=== PATIENT | female | born 1995 | race Caucasian/White ===

== ENCOUNTER 2018-04-05 11:16 | Emergency (ER) | payer OTHER ==
[2018-04-05 11:27] VITALS: BMI 29.2
[2018-04-05] MEDS ORDERED: SODIUM CHLORIDE 1,000 ML IV STA (13:19)
[2018-04-05] MEDS ORDERED: ACETAMINOPHEN 1000 MG/100 ML VIAL (NON FORMULARY) IVPB ONE (13:20)
--- NOTE | 2018-04-05 13:40 | PDOC ---
History of Present Illness - General Chief Complaint: Pain Stated Complaint: FLANK PAIN Time Seen by Provider: 04/05/18 13:04 History Source: Patient Exam Limitations: Language Barrier - History of Present Illness Initial Comments: 04/05/18 13:36 Patient is a 23F with no significant medical history here today complaining of back pain and neck pain for the past 4 days. She states that the pain radiates to her flank and abdomen. Endorses associated pain with urination. LMP on 03/25. Denies vaginal pain and discharge. Denies urinary incontinence and retention. Endorses constipation. Denies IVDU, fever, nausea, and vomiting. Patient's neck and back pain are located laterally. Denies trauma and inciting events. Past History - Past Medical History Allergies/Adverse Reactions: Allergies Allergy/AdvReac Type Severity Reaction Status Date / Time No Known Allergies Allergy Verified 04/05/18 11:24 COPD: No - Suicide/Smoking/Psychosocial Hx Smoking History: Never smoked Have you smoked in the past 12 months: No Information on smoking cessation initiated: No Hx Alcohol Use: No Drug/Substance Use Hx: No Substance Use Type: None Review of Systems - Review of Systems Comments:: 04/05/18 13:47 GENERAL/CONSTITUTIONAL: No fever or chills. No weakness. HEAD, EYES, EARS, NOSE AND THROAT: No change in vision. No sore throat. CARDIOVASCULAR: No chest pain or shortness of breath RESPIRATORY: No cough, wheezing, or hemoptysis. GASTROINTESTINAL: No nausea, vomiting, diarrhea or constipation. GENITOURINARY: Positive for dysuria and frequency. MUSCULOSKELETAL: No joint or muscle swelling or pain. Positive for neck and back pain. SKIN: No rash NEUROLOGIC: No headache, vertigo, loss of consciousness, or change in strength/ sensation. ENDOCRINE: No increased thirst. No abnormal weight change HEMATOLOGIC/LYMPHATIC: No anemia, easy bleeding, or history of blood clots. ALLERGIC/IMMUNOLOGIC: No hives or skin allergy. *Physical Exam - Vital Signs Last Vital Signs Temp Pulse Resp BP Pulse Ox 98.7 F 65 18 125/72 100 04/05/18 11:24 04/05/18 11:24 04/05/18 11:24 04/05/18 11:24 04/05/18 11:24 - Physical Exam Comments: 04/05/18 13:48 GENERAL: Awake, alert, and fully oriented, in no acute distress HEAD: No signs of trauma, normocephalic, atraumatic EYES: PERRLA, EOMI, sclera anicteric, conjunctiva clear ENT: Auricles normal inspection, hearing grossly normal, nares patent, oropharynx clear without exudates. Moist mucosa NECK: Normal ROM, supple, no lymphadenopathy, JVD, or masses LUNGS: No distress, speaks full sentences, clear to auscultation bilaterally HEART: Regular rate and rhythm, normal S1 and S2, no murmurs, rubs or gallops, peripheral pulses normal and equal bilaterally. ABDOMEN: Positive for suprapubic tenderness, extreme lower left and right quadrant tenderness PELVIC: Normal external genitalia, no CMT, no adnexal masses or tenderness. EXTREMITIES: Normal inspection, Normal range of motion, no edema. No clubbing or cyanosis. NEUROLOGICAL: Cranial nerves II through XII grossly intact. Normal speech, normal gait, no focal sensorimotor deficits SKIN: Warm, Dry, normal turgor, no rashes or lesions noted. ED Treatment Course - LABORATORY CBC & Chemistry Diagram: 04/05/18 14:27 04/05/18 14:27 - RADIOLOGY Radiology Studies Ordered: Category Date Time Status TRANSVAGINAL ULTRASOUND US [US] Stat Ultrasound 04/05/18 13:24 Ordered Medical Decision Making - Medical Decision Making 04/05/18 13:49 Patient is 23F here today with back, neck, and lower abdominal pain. Vital signs stable and normal. Exam shows tenderness, but pain is distractable and patient is ambulating without pain. No red flags for back or neck pain, exam very consistent with musculoskeletal pain. Lower abdominal pain concerning for UTI, torsion, fibroids. Will evaluate further with cbc, cmp, lipase, ua, upreg, tvus. Will treat with fluids and tylenol. 04/05/18 15:26 Laboratory Tests 04/05/18 04/05/18 04/05/18 14:27 14:27 14:27 WBC 9.0 Hgb 12.2 BUN 12 Creatinine 0.8 Urine Nitrite Negative Ur Leukocyte Esterase Negative Urine HCG, Qual 04/05/18 14:27 WBC Hgb BUN Creatinine Urine Nitrite Ur Leukocyte Esterase Urine HCG, Qual Negative CBC normal, cmp reassuring. UA negative. Pending TVUS. 04/05/18 16:16 TVUS negative. Will discharge with return precautions. *DC/Admit/Observation/Transfer Diagnosis at time of Disposition: Back pain - Discharge Dispostion Disposition: HOME Condition at time of disposition: Good Decision to Admit order: No - Referrals - Patient Instructions Printed Discharge Instructions: DI for Low Back Pain Additional Instructions: Please return if you have any new, worsening or concerning symptoms. Please follow up with your primary care physician in the next week. Please take tylenol 650mg up to 4 times per day and take ibuprofen 400mg up to 3 times to day as needed for pain. - Post Discharge Activity
[2018-04-05] MEDS ORDERED: ACETAMINOPHEN INJECTION 100 ML IVPB ONE (14:24)
[2018-04-05 14:47] LABS: URINE APPEARANCE CLEAR; URINE BILIRUBIN NEGATIVE (<2.0 mg/dL); URINE COLOR LTYELLOW; URINE GLUCOSE (UA) NEGATIVE (NEGATIVE); URINE KETONE NEGATIVE (NEGATIVE); URINE LEUK ESTERASE NEGATIVE (NEGATIVE); URINE NITRITE NEGATIVE (NEGATIVE); URINE PROTEIN NEGATIVE (NEGATIVE); URINE UROBILINOGEN NEGATIVE mg/dL (0.2-1.0)
[2018-04-05 15:09] LABS: ALBUMIN 4.1 g/dl (3.4-5.0); ANION GAP 5 (8-16); BILIRUBIN,TOTAL 0.3 mg/dL (0.2-1.0); BLOOD UREA NITROGEN 12 mg/dL (7-18); CALCIUM 9.3 mg/dL (8.5-10.1); CHLORIDE 103 mmol/L (98-107); CO2 29 mmol/L (21-32); CREATININE 0.8 mg/dL (0.55-1.02); GLUCOSE,RANDOM 76 mg/dL (74-106); LIPASE 105 U/L (73-393); SGPT/ALT 38 U/L (12-78); SODIUM 137 mmol/L (136-145)
[2018-04-05 15:10] LABS: ALK PHOS 85 U/L (45-117); POTASSIUM 4.7 mmol/L (3.5-5.1); SGOT/AST 42 U/L (15-37)
--- NOTE | 2018-04-05 15:27 | PDOC ---
Attending Attestation - Resident Resident Name: AubreyBrooks pleitez - ED Attending Attestation I have performed the following: I have examined & evaluated the patient, The case was reviewed & discussed with the resident, I agree w/resident's findings & plan, Exceptions are as noted - HPI HPI: 04/05/18 15:27 Agree with Residents note - Physicial Exam PE: 04/05/18 15:27 Agree with residents note - Medical Decision Making 04/05/18 16:58 Abdominal pain on examination. Vital signs stable. Laboratory analysis unremarkable Patient with mild low back discomfort. Normal pelvic exam. Normal transvaginal ultrasound. Most likely muscular skeletal low back discomfort. No lower abdominal tenderness palpation on examination low suspicion for appendicitis. Patient instructed to return to ED for any fever vomiting severe low abdominal pain or for any concerns. Findings, need for follow-up and strict return instructions discussed with patient.
[2018-04-05 17:06] VITALS: BP 125/70; PULSE 70; TEMP 97.8
== END 2018-04-05 16:41 | disposition home or self-care (01) ==
LOC: JER 11:16
PROC: 3E0337Z Introduction of Electrolytic and Water Balance Substance into Peripheral Vein, Percutaneous Approach (ICD-10-PCS; principal; 2018-04-05)
PROC: 3E033NZ Introduction of Analgesics, Hypnotics, Sedatives into Peripheral Vein, Percutaneous Approach (ICD-10-PCS; 2018-04-05)
DX: M54.5 Low back pain (principal)
CPT/HCPCS: 36415; 76830-TC; 80053; 81003; 83690; 84703; 85025; 96361; 96374; 99282-25; J0131; J7030

== ENCOUNTER 2018-08-19 16:25 | Emergency (ER) | payer OTHER ==
[2018-08-19 16:30] VITALS: TEMP 98; BMI 29.2
--- NOTE | 2018-08-19 16:30 | PDOC ---
Rapid Medical Evaluation Time Seen by Provider: 08/19/18 16:26 Medical Evaluation: Allergies Allergy/AdvReac Type Severity Reaction Status Date / Time No Known Allergies Allergy Verified 04/05/18 11:24 I have performed a brief in-person evaluation of this patient. The patient presents with a chief complaint of: right sided back pain radiating around to right pelvic region x 2 days. kidney stones in the past Pertinent physical exam findings: TTP of right pelvis. I have ordered the following: hcg, UA/culture, labs The patient will proceed to the ED for further evaluation. Discharge Disposition - Diagnosis Back pain - Referrals - Patient Instructions - Post Discharge Activity
[2018-08-19 17:03] LABS: BASO % 0.4 % (0-2.0); EOS % 2.4 % (0-4.5); HEMATOCRIT 38.7 % (32.4-45.2); HEMOGLOBIN 12.5 GM/dL (10.7-15.3); LYMPH % 33.2 % (8-40); MCH 25.2 pg (25.7-33.7); MCHC 32.2 g/dl (32.0-36.0); MEAN CELL VOLUME 78.4 fl (80-96); MEAN PLT VOLUME 8.5 fl (7.5-11.1); MONO % 5.8 % (3.8-10.2); NEUT % 58.2 % (42.8-82.8); PLATELET COUNT 264 K/MM3 (134-434); RBC 4.94 M/mm3 (3.60-5.2); RDW 17.4 % (11.6-15.6); WHITE BLOOD COUNT 9.1 K/mm3 (4.0-10.0)
[2018-08-19 17:28] LABS: ALBUMIN 3.8 g/dl (3.4-5.0); ALK PHOS 73 U/L (45-117); ANION GAP 10 MMOL/L (8-16); BILIRUBIN,TOTAL 0.2 mg/dL (0.2-1); BLOOD UREA NITROGEN 13 mg/dL (7-18); CALCIUM 9.7 mg/dL (8.5-10.1); CHLORIDE 103 mmol/L (98-107); CO2 26 mmol/L (21-32); CREATININE 0.7 mg/dL (0.55-1.3); GLUCOSE,RANDOM 82 mg/dL (74-106); POTASSIUM 4.3 mmol/L (3.5-5.1); SGOT/AST 18 U/L (15-37); SGPT/ALT 31 U/L (13-61); SODIUM 140 mmol/L (136-145); TOT PROT 7.9 g/dl (6.4-8.2)
--- NOTE | 2018-08-19 17:46 | PDOC ---
History of Present Illness - General Chief Complaint: Pain Stated Complaint: BACK PAIN Time Seen by Provider: 08/19/18 16:26 History Source: Patient Exam Limitations: No Limitations - History of Present Illness Travel History: No Initial Comments: 08/19/18 18:34 The patient is a 23 year old female with no significant past medical history who presents to the ER with back pain and epigastric pain since yesterday morning. Patient describes the back pain as constant, localized on the right flank waith radiation to the right groin, now 8/10 in severity that is exacerbated with movement, has been going on for approx 1 week since doing heavy lifting at work. Patient is also complaining of associated dysuria but states he has had this for the past year and has followed up with her PCP who told her she had no infection. Patient reports taking Aleve at 12PM today with no relief of her symptoms. Patient denies any history of kidney stones. Patient is also complaining of diffuse abdominal pain, worse in the epigastrium region, 7/10 in severity, constant, worsened with food intake, and feels like a bloating sensation. The patient denies chest pain, headache, and dizziness. Patient admits to constipation but states this is normal for her. Denies fever, chills, vomit, diarrhea. Denies frequency, urgency, and hematuria. Allergies: NKA Past surgical history: None reported. Social history: No reported alcohol, drug or cigarette use. PCP: [facility] at [facility] Past History - Past Medical History Allergies/Adverse Reactions: Allergies Allergy/AdvReac Type Severity Reaction Status Date / Time No Known Allergies Allergy Verified 08/19/18 16:26 Home Medications: Ambulatory Orders Mag Hydrox/Al Hydrox/Simeth [MAALOX *SUSPENSION* -] 30 ml PO Q6H PRN #1 bottle 08/19/18 Ranitidine HCl [Zantac 75] 75 mg PO DAILY #14 tablet 08/19/18 COPD: No DVT: No - Suicide/Smoking/Psychosocial Hx Smoking History: Never smoked Have you smoked in the past 12 months: No Information on smoking cessation initiated: No Hx Alcohol Use: No Drug/Substance Use Hx: No Substance Use Type: None Review of Systems - Review of Systems Able to Perform ROS?: Yes Comments:: 08/19/18 18:34 Constitutional - no reported Fever, Chills, HEENT: no reported vision changes, sore throat Respiratory: no reported cough, sob, hemoptysis Cardiac: no reported chest pain, palpitations, light headedness, leg swelling Abd/GI: +abd pain, flank pain no reported , nausea, vomiting, blood per rectum, melena, diarrhea : + dysuria x 1 year no reported frequency, discharge Musculskelatal - +r flank pain no reported back pain, joint swelling skin - no reported bruising, erythema, rash neurological: no reported headache, numbness, focal weakness, tingling, ataxia, hematologic: no reported easy bruising, easy bleeding *Physical Exam - Vital Signs Last Vital Signs Temp Pulse Resp BP Pulse Ox 98.0 F 85 18 113/81 100 08/19/18 16:28 08/19/18 16:28 08/19/18 16:28 08/19/18 16:28 08/19/18 16:28 - Physical Exam Comments: 08/19/18 18:34 GENERAL: The patient is awake, alert, and fully oriented, Nontoxic - in no acute distress. HEAD: Normocephalic, atraumatic. EYES: extraocular movements intact, sclera anicteric, conjunctiva clear. ENT: Normal voice, Moist mucous membranes. NECK: Normal range of motion, supple LUNGS: Breath sounds equal, clear to auscultation bilaterally. No wheezes, no rhonchi, no rales. HEART: Regular rate and rhythm, normal S1 and S2 without murmur, rub or gallop. ABDOMEN: Soft, nontender, No guarding, no rebound. . No CVA tenderness BACK: No mikdlnie tenderness, mild parasplinal tenderness in the R lumbar region EXTREMITIES: Normal range of motion, no edema. NEUROLOGICAL: No facial assymetry, Normal speech, PSYCH: Normal mood, normal affect. SKIN: Warm, Dry, normal turgor, ED Treatment Course - LABORATORY CBC & Chemistry Diagram: 08/19/18 16:37 08/19/18 16:37 - ADDITIONAL ORDERS Additional order review: Laboratory Results 08/19/18 16:37 Sodium 140 Potassium 4.3 Chloride 103 Carbon Dioxide 26 Anion Gap 10 BUN 13 Creatinine 0.7 Creat Clearance w eGFR > 60 Random Glucose 82 Calcium 9.7 Total Bilirubin 0.2 AST 18 ALT 31 Alkaline Phosphatase 73 Total Protein 7.9 Albumin 3.8 08/19/18 16:37 RBC 4.94 MCV 78.4 L MCHC 32.2 RDW 17.4 H MPV 8.5 Neutrophils % 58.2 Lymphocytes % 33.2 Monocytes % 5.8 Eosinophils % 2.4 Basophils % 0.4 Medical Decision Making - Medical Decision Making 08/19/18 18:28 23y F presents with a complaint of 1 week of R lower back pain s/p lifting injury from her work, taking alleve without significan timprvoement. pt also endorses dysuria x 1 year and epigastric pain and fullness when she eats for 2 days. suspect her back is musk in nature, possible kidney stone - will ck UA for hematuria med tgive tylenol epigastric pain - ?gastritis will give pepcid/maalox 08/19/18 19:59 pts labs rviewed pt feeling significantly improved abd pain resolved lower back pain also sinificnalty improved will give pt pepcid/maalox at home for gastritis tylenol as neede for her back strain I discussed the physical exam findings, ancillary test results and final diagnoses with the patient. I answered all of the patient's questions. The patient was satisfied with the care received and felt comfortable with the discharge plan and treatment plan. The patient will call their primary care physician within 24 hours to arrange follow-up and will return to the Emergency Department with any new, persistent or worsening symptoms. *DC/Admit/Observation/Transfer Diagnosis at time of Disposition: Back pain Qualifiers: Back pain location: low back pain Chronicity: acute Back pain laterality: right Sciatica presence: without sciatica Qualified Code(s): M54.5 - Low back pain GERD (gastroesophageal reflux disease) Qualifiers: Esophagitis presence: esophagitis presence not specified Qualified Code(s): K21.9 - Gastro-esophageal reflux disease without esophagitis - Discharge Dispostion Disposition: HOME Condition at time of disposition: Improved Decision to Admit order: No - Prescriptions Prescriptions: Mag Hydrox/Al Hydrox/Simeth [MAALOX *SUSPENSION* -] 30 ml PO Q6H PRN #1 bottle PRN Reason: Pain Ranitidine HCl [Zantac 75] 75 mg PO DAILY #14 tablet - Referrals Referrals: [facility] [place] [Provider Group] - Patient Instructions Printed Discharge Instructions: DI for Gastritis, DI for Back Strain or Sprain Additional Instructions: [place] tylenol para wong dolor de espalda. Use donal almohadilla trmica para mayor comodidad. Evite levantar cosas pesadas hasta que sea mucho mejor. Evite las comidas picantes, las comidas agrias, la cafena. [place] pepcid segn las indicaciones para wong gastritis. Take tylenol for your back pain. Use a heating pad for comfort. Avoid heavy lifting until it is much better. Avoid spicy foods, sour foods, caffeine. Take pepcid as directed for your gastritis. Print Language: KITTITIAN - Post Discharge Activity
[2018-08-19] MEDS ORDERED: MAG HYDROX/AL HYDROX/SIMETH -MYLANTA- ORAL SUSPENSION PO ONE (18:24)
[2018-08-19] MEDS ORDERED: FAMOTIDINE 20 MG/50 ML IVPB 20 MG in PREMIX 50 IVPB ONE (18:24)
[2018-08-19] MEDS ORDERED: ACETAMINOPHEN 325 MG TABLET (FP) PO ONE (18:24)
[2018-08-19] MEDS ORDERED: ACETAMINOPHEN 325 MG TABLET (FP) ONE (18:27)
[2018-08-19] MEDS ORDERED: FAMOTIDINE 20 MG/50 ML IVPB 20 MG/50 ML MG IVPB ONE (18:28)
[2018-08-19] MEDS ORDERED: MAG HYDROX/AL HYDROX/SIMETH 30 ML UNIT-DOSE CUP ONE (18:28)
[2018-08-19 18:37] LABS: URINE APPEARANCE CLEAR; URINE BILIRUBIN NEGATIVE (<2.0 mg/dL); URINE COLOR LTYELLOW; URINE GLUCOSE (UA) NEGATIVE (NEGATIVE); URINE KETONE NEGATIVE (NEGATIVE); URINE LEUK ESTERASE NEGATIVE (NEGATIVE); URINE NITRITE NEGATIVE (NEGATIVE); URINE PROTEIN NEGATIVE (NEGATIVE); URINE UROBILINOGEN NEGATIVE mg/dL (0.2-1.0)
[2018-08-19 18:39] LABS: HCG,QUALITATIVE URINE Negative
[2018-08-19 19:07] LABS: LIPASE 125 U/L (73-393)
[2018-08-19 20:15] VITALS: BP 120/82; PULSE 80
== END 2018-08-19 20:20 | disposition home or self-care (01) ==
LOC: JER 16:25
PROC: 3E033GC Introduction of Other Therapeutic Substance into Peripheral Vein, Percutaneous Approach (ICD-10-PCS; principal; 2018-08-19)
DX: K21.9 Gastro-esophageal reflux disease without esophagitis (principal); M54.5 Low back pain
CPT/HCPCS: 36415; 80053; 81003; 83690; 84703; 85025; 87086; 99281-25

== ENCOUNTER 2018-09-09 09:24 | Emergency (ER) | payer OTHER ==
[2018-09-09 09:47] VITALS: BP 121/78; PULSE 73; TEMP 98.9; BMI 29.2
--- NOTE | 2018-09-09 11:02 | PDOC ---
Attending Attestation - Resident Resident Name: Esme Herman - ED Attending Attestation I have performed the following: I have examined & evaluated the patient, The case was reviewed & discussed with the resident, I agree w/resident's findings & plan, Exceptions are as noted
[2018-09-09] MEDS ORDERED: METOCLOPRAMIDE HCL INJECTION 10 MG/2 ML VIAL IVPUSH ONE (11:09)
--- NOTE | 2018-09-09 11:09 | PDOC ---
History of Present Illness - General Chief Complaint: Headache Stated Complaint: HEADACHE, CHEST PAIN Time Seen by Provider: 09/09/18 09:54 - History of Present Illness Initial Comments: 09/09/18 12:25 The patient is a 23-year-old female, with no significant past medical history, who presents to the ED with chest pain, neck pain, and left-sided frontal headache, b/l arm pain that have been ongoing for a few years (she is unsure how many), but symptoms progressively worsened 4 days ago. The patient describes the chest pain as constant discomfort with radiation across her chest , with associated bilateral arm pain. Patient states that she has not been able to lift up her arms fully due to the pain getting worse when she does. The headache has been constant, gradual onset, not better or worse with anything. She states all the symptoms occurred at the same time, and got worse at the same time 4 days ago. Patient reports that she followed up with her PCP regarding these symptoms and was given a referral to see a Neurologist. The patient has a appointment with the Neurologist tomorrow. She denies taking medications at home for the pain. Denies trauma. Feels safe at home. The patient denies fevers, chills, nausea, vomiting, diarrhea, or abdominal pain. Denies any shortness of breath or palpitations. Denies any urinary symptoms. Allergies: NKA Past surgical history: None reported. Social history: No reported tobacco, alcohol, or drug use. PCP: Care at [facility] Past History - Past Medical History Allergies/Adverse Reactions: Allergies Allergy/AdvReac Type Severity Reaction Status Date / Time No Known Allergies Allergy Verified 09/09/18 09:40 Home Medications: Ambulatory Orders Mag Hydrox/Al Hydrox/Simeth [MAALOX *SUSPENSION* -] 30 ml PO Q6H PRN #1 bottle 08/19/18 Ranitidine HCl [Zantac 75] 75 mg PO DAILY #14 tablet 08/19/18 COPD: No DVT: No - Suicide/Smoking/Psychosocial Hx Smoking History: Never smoked Have you smoked in the past 12 months: No Hx Alcohol Use: No Drug/Substance Use Hx: No Substance Use Type: None Review of Systems - Review of Systems Comments:: 09/09/18 12:35 GENERAL/CONSTITUTIONAL: No fever or chills. No weakness. HEAD, EYES, EARS, NOSE AND THROAT: No change in vision. No ear pain or discharge. No sore throat. GASTROINTESTINAL: No nausea, vomiting, diarrhea or constipation. GENITOURINARY: No dysuria, frequency, or change in urination. CARDIOVASCULAR: (+)Chest pain. No shortness of breath. RESPIRATORY: No cough, wheezing, or hemoptysis. MUSCULOSKELETAL: (+)Neck pain, B/L arm pain. No joint swelling or pain. No back pain. SKIN: No rash NEUROLOGIC: (+)Headache. No vertigo, loss of consciousness, or change in strength/sensation. ENDOCRINE: No increased thirst. No abnormal weight change. HEMATOLOGIC/LYMPHATIC: No anemia, easy bleeding, or history of blood clots. ALLERGIC/IMMUNOLOGIC: No hives or skin allergy. *Physical Exam - Vital Signs Last Vital Signs Temp Pulse Resp BP Pulse Ox 98.9 F 73 18 121/78 100 09/09/18 09:41 09/09/18 09:41 09/09/18 09:41 09/09/18 09:41 09/09/18 09:41 - Physical Exam Comments: 09/09/18 12:35 GENERAL: Awake, alert, and fully oriented, in no acute distress HEAD: No signs of trauma EYES: PERRLA, EOMI, sclera anicteric, conjunctiva clear ENT: Auricles normal inspection, hearing grossly normal, nares patent, oropharynx clear without exudates. Moist mucosa NECK: Normal ROM, supple, no lymphadenopathy, JVD, or masses LUNGS: Breath sounds equal, clear to auscultation bilaterally. No wheezes, and no crackles HEART: Regular rate and rhythm, normal S1 and S2, no murmurs, rubs or gallops ABDOMEN: Soft, nontender, normoactive bowel sounds. No guarding, no rebound. No masses MSK: (+)Right trapezius tenderness to palpation. EXTREMITIES: Normal range of motion, no edema. No clubbing or cyanosis. No cords , erythema, or tenderness BACK: No midline spinal tenderness in cervical/thoracic/lumbar region NEUROLOGICAL: Normal speech, cranial nerves intact, negative pronator drift, 5/ 5 strength in all 4 extremities, normal sensation to light touch in all 4 extremities, normal cerebellar exam, normal gait, normal reflexes and tone SKIN: Warm, Dry, normal turgor, no rashes or lesions noted." Heart Score/ECG Review #1 09/09/18 13:17 Twelve-lead EKG was performed and reviewed by me. Normal sinus rhythm, rate 63. Normal axis and intervals. No ST elevations or T-wave inversions. ED Treatment Course - LABORATORY CBC & Chemistry Diagram: 09/09/18 11:20 09/09/18 11:09 Medical Decision Making - Medical Decision Making 09/09/18 11:19 23yo F with no significant PMH presents to the ED with multiple complaints, all for more than 1 year. Pt reporting L sided pressure headache, R sided pain over the trapezius, and diffuse chest pain. Vitals wnl. Exam completely normal, other than R trap ttp. Due to duration of symptoms, unlikely emergent pathology , however pt stating severity of all sxs worse over the last few days. Plan -labs -upt -ua -cxr -ekg -symptom control -reassess 09/09/18 13:16 Work up negative EKG non ischemic Pt feels significantly better after meds, requests DC home Has PMD and neuro f/u Return precautions given I discussed the physical exam findings, ancillary test results and final diagnoses with the patient. I answered all of the patient's questions. The patient was satisfied with the care received and felt comfortable with the discharge plan and treatment plan. The patient will call their primary care physician within 24 hours to arrange follow-up and will return to the Emergency Department with any new, persistent or worsening symptoms. *DC/Admit/Observation/Transfer Diagnosis at time of Disposition: Neck pain, Chest pain, Headache - Discharge Dispostion Disposition: HOME Condition at time of disposition: Improved Decision to Admit order: No - Referrals - Patient Instructions Printed Discharge Instructions: DI for Headache Additional Instructions: Follow up with your primary doctor and neurologist within 1 week. Return to the emergency department if you have any new, worsening or concerning symptoms. Print Language: HUNGARIAN - Post Discharge Activity - Attestations Physician Attestion: 09/09/18 13:19 I, Dr. Charlotte Lynn MD, attest that this document has been prepared under my direction and personally reviewed by me in its entirety. I further attest, that it accurately reflects all work, treatment, procedures and medical decision -making performed by me.
[2018-09-09] MEDS ORDERED: ACETAMINOPHEN 1000 MG/100 ML VIAL (NON FORMULARY) IVPB ONE (11:10)
[2018-09-09] MEDS ORDERED: SODIUM CHLORIDE 1,000 ML IV STA (11:10)
[2018-09-09] MEDS ORDERED: METOCLOPRAMIDE HCL INJECTION 10 MG/2 ML VIAL ONE (11:19)
[2018-09-09] MEDS ORDERED: ACETAMINOPHEN INJECTION 100 ML IVPB ONE (11:19)
[2018-09-09 11:50] LABS: BASO % 0.3 % (0-2.0); EOS % 1.2 % (0-4.5); HEMATOCRIT 42.8 % (32.4-45.2); HEMOGLOBIN 13.7 GM/dL (10.7-15.3); LYMPH % 28.4 % (8-40); MCH 25.2 pg (25.7-33.7); MEAN CELL VOLUME 78.9 fl (80-96); MEAN PLT VOLUME 8.4 fl (7.5-11.1); MONO % 5.5 % (3.8-10.2); NEUT % 64.6 % (42.8-82.8); PLATELET COUNT 304 K/MM3 (134-434); RBC 5.42 M/mm3 (3.60-5.2); RDW 17.4 % (11.6-15.6); WHITE BLOOD COUNT 8.9 K/mm3 (4.0-10.0)
[2018-09-09 11:57] LABS: HCG,QUALITATIVE URINE Negative
[2018-09-09 12:16] LABS: ALBUMIN 4.4 g/dl (3.4-5.0); ALK PHOS 81 U/L (45-117); ANION GAP 6 MMOL/L (8-16); BILIRUBIN,TOTAL 0.3 mg/dL (0.2-1); BLOOD UREA NITROGEN 9 mg/dL (7-18); CALCIUM 9.9 mg/dL (8.5-10.1); CHLORIDE 103 mmol/L (98-107); CO2 29 mmol/L (21-32); CREATININE 0.8 mg/dL (0.55-1.3); GLUCOSE,RANDOM 81 mg/dL (74-106); POTASSIUM 4.6 mmol/L (3.5-5.1); SGOT/AST 27 U/L (15-37); SGPT/ALT 45 U/L (13-61); SODIUM 138 mmol/L (136-145); TOT PROT 9.3 g/dl (6.4-8.2)
[2018-09-09 12:22] LABS: URINE APPEARANCE CLEAR; URINE BILIRUBIN NEGATIVE (<2.0 mg/dL); URINE COLOR LTYELLOW; URINE GLUCOSE (UA) NEGATIVE (NEGATIVE); URINE KETONE NEGATIVE (NEGATIVE); URINE LEUK ESTERASE NEGATIVE (NEGATIVE); URINE NITRITE NEGATIVE (NEGATIVE); URINE PROTEIN NEGATIVE (NEGATIVE); URINE UROBILINOGEN NEGATIVE mg/dL (0.2-1.0)
--- NOTE | 2018-09-09 15:36 | EKG ---
Test Reason : Blood Pressure : / mmHG Vent. Rate : 063 BPM Atrial Rate : 063 BPM P-R Int : 128 ms QRS Dur : 078 ms QT Int : 412 ms P-R-T Axes : 030 054 039 degrees QTc Int : 421 ms NORMAL SINUS RHYTHM NORMAL ECG NO PREVIOUS ECGS AVAILABLE Confirmed by CLAUS AVILES MD ([id number]) on 09/09/2018 3:36:23 PM Referred By: Confirmed By:CLAUS AVILES MD
== END 2018-09-09 13:28 | disposition home or self-care (01) ==
LOC: JER 09:24
PROC: 3E033NZ Introduction of Analgesics, Hypnotics, Sedatives into Peripheral Vein, Percutaneous Approach (ICD-10-PCS; principal; 2018-09-09)
PROC: 3E033GC Introduction of Other Therapeutic Substance into Peripheral Vein, Percutaneous Approach (ICD-10-PCS; 2018-09-09)
DX: R07.9 Chest pain, unspecified (principal); R51 Headache; M54.2 Cervicalgia; M79.601 Pain in right arm; M79.602 Pain in left arm
CPT/HCPCS: 36415; 71045-TC-FY; 80053; 81003; 84484; 84703; 85025; 87086; 93005; 93010; 99283-25; J0131; J7030

== ENCOUNTER 2019-01-19 22:10 | Emergency (ER) | payer OTHER ==
[2019-01-19 22:17] VITALS: BP 124/74; PULSE 82; TEMP 97.9; BMI 27.6
[2019-01-20] MEDS ORDERED: ACETAMINOPHEN 325 MG TABLET (FP) PO ONE (00:31)
--- NOTE | 2019-01-20 00:32 | PDOC ---
History of Present Illness - General History Source: Patient Exam Limitations: No Limitations - History of Present Illness Initial Comments: 01/20/19 01:03 The patient is a 23 year old female, with no significant past medical history, who presents to the emergency department with, chest pain and upper back pain. As per patient, her chest pain and back pain onset today. She notes her pain has been intermittently recurrent for the past 3 months. 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 She notes taking Aspirin, with relief. Patient saw her PCP yesterday at which time she told about her intermittent episodes who advised her to see a chemical engineering teacher for an ECHO. Patient has been seen in the ER multiple times for similar symptoms with a negative workup. She denies recent shortness of breath or palpitations. She denies any worsening of alleviating factors. She denies any calf tenderness. She denies recent fevers , chills, headache or dizziness. She denies recent nausea, vomit, diarrhea or constipation. She denies recent dysuria, frequency, urgency or hematuria. Allergies: NKDA Past surgical history: None reported. Social history: On oral contraceptives. Nonsmoker. Denies EtOH use and recreational drug use. Primary Care Physician: Royal LMP: 12/28/2018 <Salazar Genao - Last Filed: 01/20/19 01:00> <Kate Cueva - Last Filed: 01/20/19 01:42> - General Chief Complaint: Chest Pain Stated Complaint: CHEST PAIN Time Seen by Provider: 01/20/19 00:10 Past History <Salazar Genao - Last Filed: 01/20/19 01:00> - Past Medical History COPD: No DVT: No - Suicide/Smoking/Psychosocial Hx Smoking History: Never smoked Have you smoked in the past 12 months: No Information on smoking cessation initiated: No Hx Alcohol Use: No Drug/Substance Use Hx: No Substance Use Type: None <Kate Cueva - Last Filed: 01/20/19 01:42> - Past Medical History Allergies/Adverse Reactions: Allergies Allergy/AdvReac Type Severity Reaction Status Date / Time No Known Allergies Allergy Verified 09/09/18 09:40 Home Medications: Ambulatory Orders Mag Hydrox/Al Hydrox/Simeth [MAALOX *SUSPENSION* -] 30 ml PO Q6H PRN #1 bottle 08/19/18 Ranitidine HCl [Zantac 75] 75 mg PO DAILY #14 tablet 08/19/18 Review of Systems - Review of Systems Able to Perform ROS?: Yes Comments:: 01/20/19 01:03 GENERAL/CONSTITUTIONAL: No fever or chills. No weakness. HEAD, EYES, EARS, NOSE AND THROAT: No change in vision. No ear pain or discharge. No sore throat. GASTROINTESTINAL: No nausea, vomiting, diarrhea or constipation. GENITOURINARY: No dysuria, frequency, or change in urination. CARDIOVASCULAR: + Chest pain. No shortness of breath. RESPIRATORY: No cough, wheezing, or hemoptysis. MUSCULOSKELETAL: Upper back pain. No joint or muscle swelling or pain. No neck pain. SKIN: No rash NEUROLOGIC: No headache, vertigo, loss of consciousness, or change in strength/ sensation. ENDOCRINE: No increased thirst. No abnormal weight change. HEMATOLOGIC/LYMPHATIC: No anemia, easy bleeding, or history of blood clots. ALLERGIC/IMMUNOLOGIC: No hives or skin allergy. All Other Systems: Reviewed and Negative <Salazar Genao - Last Filed: 01/20/19 01:00> *Physical Exam - Vital Signs Last Vital Signs Temp Pulse Resp BP Pulse Ox 97.9 F 82 20 124/74 99 01/19/19 22:15 01/19/19 22:15 01/19/19 22:15 01/19/19 22:15 01/19/19 22:15 - Physical Exam Comments: 01/20/19 01:04 Constitutional: Awake, alert, oriented. No acute distress. Head: Normocephalic. Atraumatic Neck: Supple. Full ROM. No lymphadenopathy. +Cardiovascular: Reproducible chest wall tenderness. Regular rate. Regular rhythm. S1, S2 regular. Distal pulses are 2+ and symmetric. Pulmonary/Chest: No evidence of respiratory distress. Clear to auscultation bilaterally No wheezing, rales or rhonchi. Abdominal: Soft and non-distended. There is no tenderness. No rebound, guarding or rigidity. No organomegaly. No palpable masses. Good bowel sounds. +Back: Reproducible thoracic back pain. No CVA tenderness. Musculoskeletal: No edema. No cyanosis. No clubbing. Full range of motion in all extremities. No calf tenderness. Radial/pedal pulses are intact and 2+ bilaterally Skin: Skin is warm and dry. No petechiae. No purpura. Neurological: Alert and oriented to person, place, and time. Cranial nerves II -XII are grossly intact. Normal speech. Strength is grossly symmetric. No sensory deficits. Psychiatric: Good eye contact. Normal interaction, affect and behavior. <Salazar Genao - Last Filed: 01/20/19 01:00> - Vital Signs Last Vital Signs Temp Pulse Resp BP Pulse Ox 97.9 F 82 20 124/74 99 01/19/19 22:15 01/19/19 22:15 01/19/19 22:15 01/19/19 22:15 01/19/19 22:15 <Kate Cueva - Last Filed: 01/20/19 01:42> Moderate Sedation - Procedure Monitoring Vital Signs: Procedure Monitoring Vital Signs Temperature 97.9 F 01/19/19 22:15 Pulse Rate 82 01/19/19 22:15 Respiratory Rate 20 01/19/19 22:15 Blood Pressure 124/74 01/19/19 22:15 O2 Sat by Pulse Oximetry (%) 99 01/19/19 22:15 <Salazar Genao - Last Filed: 01/20/19 01:00> - Procedure Monitoring Vital Signs: Procedure Monitoring Vital Signs Temperature 97.9 F 01/19/19 22:15 Pulse Rate 82 01/19/19 22:15 Respiratory Rate 20 01/19/19 22:15 Blood Pressure 124/74 01/19/19 22:15 O2 Sat by Pulse Oximetry (%) 99 01/19/19 22:15 <Kate Cueva - Last Filed: 01/20/19 01:42> Heart Score/ECG Review - ECG Intrepretation Comment:: 01/20/19 01:39 sinus at72, nl axis, nl interval, no acute st/t wave findings <Kate Cueva - Last Filed: 01/20/19 01:42> ED Treatment Course - LABORATORY CBC & Chemistry Diagram: 01/20/19 00:40 01/20/19 00:40 - ADDITIONAL ORDERS Additional order review: 01/20/19 00:40 RBC 4.60 MCV 80.0 MCHC 33.9 RDW 16.0 H MPV 8.2 Neutrophils % 52.4 Lymphocytes % 37.1 D Monocytes % 7.6 Eosinophils % 2.5 D Basophils % 0.4 - Medications Given in the ED: ED Medications Discontinued Medications Generic Name Dose Route Start Last Admin Trade Name Carlos PRN Reason Stop Dose Admin Acetaminophen 975 mg 01/20/19 00:31 01/20/19 00:48 Tylenol - PO 01/20/19 00:32 975 mg ONCE ONE Administration <Salazar Genao - Last Filed: 01/20/19 01:00> - LABORATORY CBC & Chemistry Diagram: 01/20/19 00:40 01/20/19 00:40 - RADIOLOGY Radiology Studies Ordered: Category Date Time Status CHEST PA & LAT [RAD] Stat Radiology 01/20/19 00:30 Ordered <Kate Cueva - Last Filed: 01/20/19 01:42> Medical Decision Making - Medical Decision Making 01/20/19 01:38 a/p: 23yo female with reproducible chest pain -states pain every 3 months -saw pmd yesterday -took asa for pain -mid thoracic pain -will obtain xray, labs -will medicate for pain -no acs risk factors -denies smoking -perc negative -will monitor and reassess 01/20/19 01:40 labs reviewed trop negative 01/20/19 01:40 cxr clear mildly elevated ck- recommend water intake labs reviewed and discussed with the patient. pt stable for dc to home <Kate Cueva - Last Filed: 01/20/19 01:42> *DC/Admit/Observation/Transfer - Attestations Scribe Attestion: 01/20/19 01:05 Documentation prepared by Salazar Genao, acting as biomedical electronics technician for Kate Cueva DO. <Salazar Genao - Last Filed: 01/20/19 01:00> - Discharge Dispostion Decision to Admit order: No - Attestations Physician Attestion: 01/20/19 01:42 I, Dr. Kate Cueva DO, attest that this document has been prepared under my direction and personally reviewed by me in its entirety. I further attest, that it accurately reflects all work, treatment, procedures and medical decision -making performed by me. <Kate Cueva - Last Filed: 01/20/19 01:42> Diagnosis at time of Disposition: Chest pain, Back pain, Chest wall pain - Discharge Dispostion Disposition: HOME Condition at time of disposition: Stable - Referrals Referrals: Marlon Verdin MD [Staff Physician] - - Patient Instructions Printed Discharge Instructions: DI for Atypical Chest Pain Additional Instructions: Please drink plenty of water. Please take tylenol or motrin as needed for the pain. Please follow up with your PMD. Please make an appointment to see the chemical engineering teacher if you pain continues. Please return to the ED with any further concerns or complaints.
[2019-01-20] MEDS ORDERED: ACETAMINOPHEN 325 MG TABLET (FP) ONE (00:45)
[2019-01-20 00:53] LABS: BASO % 0.4 % (0-2.0); EOS % 2.5 % (0-4.5); HEMATOCRIT 36.8 % (32.4-45.2); HEMOGLOBIN 12.5 GM/dL (10.7-15.3); LYMPH % 37.1 % (8-40); MCH 27.1 pg (25.7-33.7); MCHC 33.9 g/dl (32.0-36.0); MEAN PLT VOLUME 8.2 fl (7.5-11.1); MONO % 7.6 % (3.8-10.2); NEUT % 52.4 % (42.8-82.8); PLATELET COUNT 259 K/MM3 (134-434); WHITE BLOOD COUNT 9.8 K/mm3 (4.0-10.0)
[2019-01-20 01:14] LABS: ALBUMIN 3.6 g/dl (3.4-5.0); ALK PHOS 67 U/L (45-117); ANION GAP 2 MMOL/L (8-16); BILIRUBIN,TOTAL 0.1 mg/dL (0.2-1); BLOOD UREA NITROGEN 14 mg/dL (7-18); CHLORIDE 105 mmol/L (98-107); CO2 31 mmol/L (21-32); CREATININE 0.8 mg/dL (0.55-1.3); GLUCOSE,RANDOM 93 mg/dL (74-106); POTASSIUM 3.8 mmol/L (3.5-5.1); SGOT/AST 39 U/L (15-37); SGPT/ALT 45 U/L (13-61); SODIUM 137 mmol/L (136-145); TOT PROT 7.8 g/dl (6.4-8.2)
[2019-01-20] MEDS ORDERED: KETOROLAC TROMETHAMINE 60 MG/2 ML VIAL IM ONE (01:22)
[2019-01-20] MEDS ORDERED: KETOROLAC TROMETHAMINE 60 MG/2 ML VIAL ONE (01:52)
--- NOTE | 2019-01-20 16:57 | EKG ---
Test Reason : Blood Pressure : / mmHG Vent. Rate : 072 BPM Atrial Rate : 072 BPM P-R Int : 128 ms QRS Dur : 070 ms QT Int : 372 ms P-R-T Axes : 038 060 035 degrees QTc Int : 407 ms POOR DATA QUALITY, INTERPRETATION MAY BE ADVERSELY AFFECTED NORMAL SINUS RHYTHM NORMAL ECG WHEN COMPARED WITH ECG OF 09-SEP-2018 12:07, NO SIGNIFICANT CHANGE WAS FOUND Confirmed by TRACI PAIZ, CLAUS ([id number]) on 01/20/2019 4:57:03 PM Referred By: Confirmed By:CLAUS AVILES MD
== END 2019-01-20 02:09 | disposition home or self-care (01) ==
LOC: JER 22:10
PROC: 3E0233Z Introduction of Anti-inflammatory into Muscle, Percutaneous Approach (ICD-10-PCS; principal; 2019-01-19)
DX: M54.9 Dorsalgia, unspecified (principal); R07.89 Other chest pain; R07.9 Chest pain, unspecified
CPT/HCPCS: 36415; 71046-TC-FY; 80053; 82550; 82553; 84484; 84703; 85025; 93005; 93010; 99281-25

== ENCOUNTER 2019-01-25 21:27 | Emergency (ER) | payer OTHER ==
[2019-01-25 21:40] VITALS: BP 124/86; PULSE 98; TEMP 98.3; BMI 31.1
--- NOTE | 2019-01-25 21:47 | PDOC ---
Rapid Medical Evaluation Chief Complaint: Headache Time Seen by Provider: 01/25/19 21:37 Medical Evaluation: Allergies Allergy/AdvReac Type Severity Reaction Status Date / Time No Known Allergies Allergy Verified 01/25/19 21:41 Vital Signs Temp Pulse Resp BP Pulse Ox 98.3 F 98 H 18 124/86 100 01/25/19 21:38 01/25/19 21:38 01/25/19 21:38 01/25/19 21:38 01/25/19 21:38 01/25/19 21:44 I have performed a brief in-person evaluation of this patient. The patient presents with a chief complaint of: sudden onset of frontal headache upon wake from sleep which caused her to have rapid heart beat and SOB. Pt report she didn't like the headache she had and started getting anxious and started having SOB. Denies dizziness, numbness or tingling sensation. Patient was seen 5 days ago for chest pains and all work-up was normal Pertinent physical exam findings: A&O x 3 in NAD. heart RRR I have ordered the following: ekg, uhcg, CXR The patient will proceed to the ED for further evaluation Discharge Disposition - Diagnosis Headache Qualifiers: Headache type: unspecified Headache chronicity pattern: acute headache Intractability: not intractable Qualified Code(s): R51 - Headache - Discharge Dispostion Condition at time of disposition: Stable - Referrals - Patient Instructions - Post Discharge Activity
--- NOTE | 2019-01-25 22:28 | PDOC ---
History of Present Illness - General Chief Complaint: Headache Stated Complaint: SOB Time Seen by Provider: 01/25/19 21:37 - History of Present Illness Initial Comments: 01/25/19 22:26 23-year-old female without comorbidities presents for evaluation of chest pain which woke her up out of her sleep and shortness of breath. Along with the symptoms she ALSO complains of a frontal headache. She was seen last week for similar symptoms and diagnosed and discharge with atypical chest pain her workup at that time was negative. 01/25/19 22:28 Since the onset of her symptoms and her presentation in the emergency room her chest pain has resolved she does have intermittent episodes of shortness of breath and a frontal headache. Her chest pain was nonradiating. Past History - Past Medical History Allergies/Adverse Reactions: Allergies Allergy/AdvReac Type Severity Reaction Status Date / Time No Known Allergies Allergy Verified 01/25/19 21:41 Home Medications: Ambulatory Orders Mag Hydrox/Al Hydrox/Simeth [MAALOX *SUSPENSION* -] 30 ml PO Q6H PRN #1 bottle 08/19/18 Ranitidine HCl [Zantac 75] 75 mg PO DAILY #14 tablet 08/19/18 COPD: No DVT: No - Suicide/Smoking/Psychosocial Hx Smoking History: Never smoked Have you smoked in the past 12 months: No Information on smoking cessation initiated: No Hx Alcohol Use: No Drug/Substance Use Hx: No Substance Use Type: None Review of Systems - Review of Systems Cardiac (ROS): Yes: Chest Pain Neurological: Yes: Headache *Physical Exam - Vital Signs Last Vital Signs Temp Pulse Resp BP Pulse Ox 98.3 F 98 H 18 124/86 100 01/25/19 21:38 01/25/19 21:38 01/25/19 21:38 01/25/19 21:38 01/25/19 21:38 - Physical Exam Comments: 01/25/19 22:28 HEAD: NC/AT EYES: Conjuntiva clear Ears: Canals and TM's normal NOSE: No d/c THROAT: Moist mucous membrances, oral pharanx clear, uvula midline NECK: Supple without adenopathy CARDIAC: S1 S2 LUNGS: CTA Full and Equal breath sounds ABDOMEN: Soft NT ND MS: Full ROM in all joints without edema NEUROLOGIC: No gross sensory or motor deficits, NVID SKIN: Normal color and temperature no lesions or rashes Moderate Sedation - Procedure Monitoring Vital Signs: Procedure Monitoring Vital Signs Temperature 98.3 F 01/25/19 21:38 Pulse Rate 98 H 01/25/19 21:38 Respiratory Rate 18 01/25/19 21:38 Blood Pressure 124/86 01/25/19 21:38 O2 Sat by Pulse Oximetry (%) 100 01/25/19 21:38 Medical Decision Making - Medical Decision Making 01/25/19 22:27 EKG was reviewed and is normal. My index of suspicion for cardiac event is extremely low. She has no risk factors 23 years old with chest pain and shortness of breath waking her up causing her to walk outside without a duy on his most likely an anxiety attack I will await a test and treated with Valium and await her resolution of symptoms. 01/25/19 22:39 Much improved with PO vlalium 01/25/19 22:41 Examination done with Female French speaking scribe in the ER *DC/Admit/Observation/Transfer Diagnosis at time of Disposition: Anxiety Headache Qualifiers: Headache type: unspecified Headache chronicity pattern: acute headache Intractability: not intractable Qualified Code(s): R51 - Headache - Discharge Dispostion Disposition: HOME Condition at time of disposition: Improved Decision to Admit order: No - Referrals Referrals: Kendell Lynn [Non Staff, Medical] - - Patient Instructions Printed Discharge Instructions: Anxiety Disorders, Generalized Anxiety Disorder , DI for Anxiety -- Adult Additional Instructions: esto es muy probablemente un ataque de ansiedad. Por favor, tuan un seguimiento con la medicina interna en natalie o dos morales para donal evaluacin adicional y opciones de tratamiento. Regrese a la krysten de emergencias si los sntomas empeoran. this is most likely an anxiety attack. Please follow-up with internal medicine in one to 2 days for further evaluation and treatment options. Return to the emergency room should symptoms worsen. - Post Discharge Activity
[2019-01-25] MEDS ORDERED: diazePAM 5 MG TABLET PO ONE (22:29)
[2019-01-25] MEDS ORDERED: diazePAM 5 MG TABLET ONE (22:32)
--- NOTE | 2019-01-26 12:35 | EKG ---
Test Reason : Blood Pressure : / mmHG Vent. Rate : 082 BPM Atrial Rate : 082 BPM P-R Int : 138 ms QRS Dur : 074 ms QT Int : 366 ms P-R-T Axes : 047 058 034 degrees QTc Int : 427 ms NORMAL SINUS RHYTHM WITH SINUS ARRHYTHMIA NORMAL ECG WHEN COMPARED WITH ECG OF 19-JAN-2019 22:20, NO SIGNIFICANT CHANGE WAS FOUND Confirmed by ALEX MOORE MD ([id number]) on 01/26/2019 12:35:12 PM Referred By: Confirmed By:ALEX MOORE MD
== END 2019-01-25 22:47 | disposition home or self-care (01) ==
LOC: JERFT 21:27
DX: F41.9 Anxiety disorder, unspecified (principal); R51 Headache
CPT/HCPCS: 84703; 93005; 93010; 99281-25